=== PATIENT | male | born 1995 | race Caucasian/White ===

== ENCOUNTER 2018-02-18 13:23 | Emergency (ER) | payer OTHER ==
[2018-02-18] MEDS: HYDROCODONE/APAP (5/325) TAB PO (14:12)
== END 2018-02-18 15:33 | disposition home or self-care (01) ==
LOC: FTE 13:23
DX: S89.91XA Unspecified injury of right lower leg, initial encounter (principal); V13.4XXA Pedal cycle driver injured in collision with car, pick-up truck or van in traffic accident, initial encounter
CPT/HCPCS: 73562; 99283-25